=== PATIENT | female | born 2000 | race Hispanic/Latino ===

== ENCOUNTER 2025-04-26 13:08 | Emergency (ER) | payer OTHER, SELFPAY | END 2025-04-26 14:02 | disposition home or self-care (01) | LOC: BURERS 13:08 | DX: S16.1XXA Strain of muscle, fascia and tendon at neck level, initial encounter (principal); V89.2XXA Person injured in unspecified motor-vehicle accident, traffic, initial encounter | CPT/HCPCS: 99283 ==